=== PATIENT | male | born 1960 | race Caucasian/White ===

== ENCOUNTER → 2023-11-28 17:27 | Outpatient (REF) | payer OTHER, SELFPAY | LOC: PAVMRI 17:27 | PROVIDERS: ATTENDING PHYSICIAN Orthopaedic Surgery Orthopaedic Surgery of the Spine; FAMILY PHYSICIAN Family Medicine | DX: M48.062 Spinal stenosis, lumbar region with neurogenic claudication (principal) | CPT/HCPCS: 72148 ==